=== PATIENT | female | born 1945 | race Caucasian/White ===

== ENCOUNTER 2017-01-02 08:50 | Day surgery (SDC) | payer OTHER, MEDICARE ==
--- NOTE | 2017-01-02 09:26 | PDANEPAE ---
ANE History of Present Illness 71 year old female w/ PMHx of Mana Guerra (on anticoagulation), hypothyroidism & upper abdominal pain presents for EGD. ANE Past Medical History - Cardiovascular History Hx Hypertension: No Hx Arrhythmias: Yes Hx Chest Pain: No Hx Coronary Artery / Peripheral Vascular Disease: No Hx CHF / Valvular Disease: No Hx Palpitations: No Cardiovascular History Comment: A-FIB BEGAN 12/2014 - Pulmonary History Hx COPD: No Hx Asthma/Reactive Airway Disease: No Hx Recent Upper Respiratory Infection: No Hx Oxygen in Use at Home: No Hx Sleep Apnea: No - Neurologic History Hx Cerebrovascular Accident: No Hx Seizures: No Hx Dementia: No - Endocrine History Hx Diabetes: No Hypothyroid: Yes Hyperthyroid: No Endocrine History Comment: HYPOTHYROID - Renal History Hx Renal Disorders: Yes Renal History Comment: DARK URINE 08/2015 - Liver History Hx Hepatic Disorders: No Hepatic History Comment: JAUNDICE DISCOVERED 09/14/2015 - Neurological & Psychiatric Hx Hx Neurological and Psychiatric Disorders: No - Cancer History Hx Cancer: No - Congenital Disorder History Hx Congenital Disorders: No - GI History Hx Gastrointestinal Disorders: Yes Gastrointestinal History Comment: HAS GALL STONES - Chronic Pain History Chronic Pain: Yes (UPPER ABD PAST 3 WEEKS) - Surgical History Prior Surgeries: TONSILLECTOMY. LT TOTAL HIP 2010 ANE Review of Systems Review of Systems: - Exercise capacity Exercise capacity: >=4 METS ANE Patient History - Allergies Allergies/Adverse Reactions: morphine Allergy (Verified 09/23/15 20:30) - Home Medications Home medications: home medication list seen and reviewed Home Medications: Eliquis 5 mg PO BID 09/21/15 [Last Taken 12/30/16] Levothyroxine 0.25 mg PO DAILY06 09/21/15 [Last Taken 01/02/17] Metoprolol Oral Susp (*) 50 mg PO HS 09/21/15 [Last Taken 01/01/17] Creon 12 (*) QIDMEAL 01/01/17 [Last Taken 01/02/17] Flagyl DAILY AT 8PM 01/01/17 [Last Taken 01/01/17] Lasix DAILY06 01/01/17 [Last Taken 01/01/17] Potassium DAILY 01/01/17 [Last Taken 01/01/17] Spironolactone DAILY06 01/01/17 [Last Taken 01/01/17] - NPO status NPO Status: no food or drink >8 hours - Anes Hx Anes Hx: no prior problems - Smoking Hx Smoking Status: Never smoked - Alcohol Use Alcohol Use: Rarely - Family Anes Hx Family Anes Hx: neg - N/A ANE Labs/Vital Signs - Vital Signs Vital Signs: reviewed preoperatively; see RN documention for details ANE Physical Exam - Airway Neck exam: FROM Mallampati Score: Class 2 Mouth exam: normal dental/mouth exam - Pulmonary Pulmonary: no respiratory distress - Cardiovascular Cardiovascular: regular rate and rhythym - ASA Status ASA Status: III ANE Anesthesia Plan Anesthesia Plan: GA with mask Total IV Anesthesia: Yes
[2017-01-02 09:56] VITALS: PULSE 86
[2017-01-02] MEDS ORDERED: LR 1,000 ML IV ONE (09:57)
--- NOTE | 2017-01-02 10:12 | PDGENHP ---
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 Pertinent Past, Social, Family History: PMHx; hypothyroid, panc ca. SoHx: social Relevant Physical Exam: HEENT: anicteric. CV: RRR +s1s2. Lungs: CTAB. Abd: soft, nt +bs Cardiorespiratory Assessment: ASA 3
[2017-01-02] MEDS ORDERED: PROPOFOL/EMULSION 500 MG/50 ML BOTTLE IV ONE (10:14)
[2017-01-02] MEDS ORDERED: NS 500 ML IV SCH (10:15)
[2017-01-02] MEDS ORDERED: LR 500 ML IV PRN (10:26)
[2017-01-02] MEDS ORDERED: NALOXONE HCL 0.4 MG/ML INJ IVP PRN (10:26)
[2017-01-02] MEDS ORDERED: fentaNYL 100 MCG/2 ML INJ IVP PRN (10:26)
[2017-01-02] MEDS ORDERED: ONDANSETRON 4 MG/2 ML VIAL IVP PRN (10:26)
[2017-01-02 10:55] VITALS: TEMP 98.1; O2SAT 98
--- NOTE | 2017-01-02 11:05 | GIREPORT ---
[facility] Surgical Services - Endoscopy Department Patient Name: Shannon Claros Procedure Date: 01/02/2017 9:57 AM Patient Type: Outpatient Attending MD/ ER Physician: Red Valente MD Procedure: Upper GI endoscopy Indications: Iron deficiency anemia Patient Profile: 71 year old female with a history of pancreatic cancer presents for evaluation of iron deficiency anemia/protein losing enteropathy. Providers: Red Valente MD Medicines: Monitored Anesthesia Care Complications: No immediate complications. Estimated blood loss: Minimal. Description of Procedure: After obtaining informed consent, the endoscope was passed under direct vision. Throughout the procedure, the patient's blood pressure, pulse, and oxygen saturations were monitored continuously. The Endoscope was intro duced through the mouth, and advanced to the second part of duodenum. The [facility] er GI endoscopy was accomplished without difficulty. The patient tolerated th e procedure well. Findings: The examined esophagus was normal. A hiatal hernia was present. Patchy mildly erythematous mucosa with dried heme was found in the uziel maine body and in the gastric antrum. Biopsies were taken with a cold forceps for histology. The examined duodenum was normal. Biopsies were taken with a cold force ps for histology. Estimated Blood Loss: Estimated blood loss was minimal. Post Op Diagnosis: - Normal esophagus. - Hiatal hernia. - Erythematous mucosa in the gastric body and antrum. Biopsied. - Normal examined duodenum. Biopsied. - Etiology? No obvious cause. Will await biopsy results. Recommendation: - Discharge patient to home (with escort). - Resume previous diet. - Continue present medications. - Await pathology results. - Thank you for allowing me to participate in the care of your patient. Attending Participation: I personally performed the entire procedure. Red Valente MD Red Valente MD 01/02/2017 11:05:37 AM This report has been signed electronicallyRed Valente MD Number of Addenda: 0 Note Initiated On: 01/02/2017 9:57 AM [email or web address]
[2017-01-02 11:21] VITALS: RESP 18
[2017-01-02 11:26] VITALS: BP 97/64
--- NOTE | 2017-01-02 13:21 | POSTANESTH ---
Post Anesthetic Evaluation Cardiovascular Status: Similar to Pre-Op Cond Respiratory Status: Normal, Stable, Similar to Pre-op Cond. Level of Consciousness/Mental Status: Can Participate in Eval, Alert and Oriented Pain Control: Adequate, Prn Tx Ordered Nausea/Vomiting Control: Adequate, Prn Tx Ordered Complications Possibly Related to Anesthesia: None Noted
== END 2017-01-02 12:00 | disposition home or self-care (01) ==
LOC: FSGY 08:50
PROVIDERS: ATTEND Internal Medicine Gastroenterology
PROC: 0DB68ZX Excision of Stomach, Via Natural or Artificial Opening Endoscopic, Diagnostic (ICD-10-PCS; principal; 2017-01-02 10:00)
PROC: 0DB98ZX Excision of Duodenum, Via Natural or Artificial Opening Endoscopic, Diagnostic (ICD-10-PCS; principal; 2017-01-02 10:00)
DX: K29.50 Unspecified chronic gastritis without bleeding (principal); D50.9 Iron deficiency anemia, unspecified; Z85.07 Personal history of malignant neoplasm of pancreas
CPT/HCPCS: J1642; J2704